=== PATIENT | male | born 1970 | race Caucasian/White ===

== ENCOUNTER → 2023-04-01 09:05 | Outpatient (BNVA) | payer OTHER, SELFPAY | PROVIDERS: PCP Nurse Practitioner Family; Visit Provider Registered Nurse Emergency ==

== ENCOUNTER 2023-05-25 07:02 | Outpatient (REF) | payer OTHER, SELFPAY ==
--- NOTE | ~2023-05-25 | FL_ITS ---
EXAMINATION: XR FLUOROSCOPY WITH IMAGES CLINICAL INFORMATION: Spondylosis without myelopathy COMPARISON: None available. TECHNIQUE: Fluoroscopy Supervised By: Dr. Imer Green. Fluoroscopy Time: 0.9 minutes. Cumulative Dose: 3.97 mGy. DAP: 0.0686 Gycm2. Images: 8. FINDINGS: Images demonstrate 5 needle superimposing over the left cervical facets. Contrast present. FL/FL guidance in treatment room IMPRESSION: Imaging assistance provided during a fluoroscopic procedure
== END 2023-05-25 07:03 | disposition home or self-care (01) ==
LOC: CF 07:02
PROVIDERS: PCP Anesthesiology; Visit Provider Nurse Practitioner Family
DX: M47.812 Spondylosis without myelopathy or radiculopathy, cervical region (principal)
CPT/HCPCS: 64490; 64491

== ENCOUNTER 2023-05-25 07:48 | Outpatient (AMB) | payer SELFPAY ==
[2023-05-25 07:53] VITALS: BP 116/76; PULSE 78; RESP 16; O2SAT 96; BMI 28.3
--- NOTE | 2023-05-25 07:53 | A.OFFVIS_ITS ---
Intake Vital Signs 05/25/23 07:53 05/25/23 09:05 Height 5 ft 7 in 5 ft 7 in Weight 181 lb 181 lb BMI 28.3 28.3 BP 116/76 104/62 Blood Pressure Location Lt brachial Lt brachial Position Sitting Sitting Respiration 16 16 Pulse 78 61 Pulse Source Pulse Oximeter Pulse Oximeter Pulse Oximetry (%) 96 99 Oxygen Delivery Method Room Air Room Air Comment Pre-Op Post-op Intake Visit Reasons: LEFT DIAGNOSTIC C5, C6, C7, C8 MBB Allergies No Known Allergies Allergy (Verified 05/25/23 07:54) [facility] Medical History (Updated 04/01/23 @ 11:21 by Fely Stoner, MANAGER CATEGORY, CHIEF OPERATING ENGINEER) Generalized anxiety disorder Generalized headaches History of substance abuse Hyperlipemia Mild obstructive sleep apnea Neck pain Nicotine dependence Social History (Updated 04/01/23 @ 09:32 by Sue Mendez) Alcohol intake: current Alcohol intake frequency: a few times a week Alcohol type: beer Patient Tobacco Use Status: Former Tobacco user Substance Use Type: Crack/Cocaine, Heroin and Marijuana Physical Exam Vital Signs: Last Vital Signs Pulse 61 05/25/23 09:05 Resp 16 05/25/23 09:05 BP 104/62 05/25/23 09:05 Pulse Ox 99 05/25/23 09:05 Oxygen Delivery Method Room Air 05/25/23 09:05 BMI result Body Mass Index 28.3 Results Reviewed Results Reviewed: 05/25/23 08:06 Lidocaine HCl 2 % MPF [Xylocaine 2 % MPF] 5 ml .ROUTE .STK-MED ONE Assessment & Plan Assessment & Plan (1) Arthropathy of cervical facet joint: Code(s): M47.812 - Spondylosis without myelopathy or radiculopathy, cervical region Plan: Left C3- C4- C5- C6 diagnostic medial branch block. ?Informed consent was explained to the patient. All questions were explained and answered.? The patient was taken inside the operating room where he was positioned prone on the operating table. Time-out was performed delineating correct site, side, the nature of the procedure, patient's allergy, preoperative antibiotic if needed.? All operating room staff was participating in OR time-out procedure. The back of the neck and upper thorax were prepped with ChloraPrep and draped with sterile towels.? ? Sterilely draped C-arm was brought over the operating field and sq picture of? C3-C4-C5- C6 vertebrae were delineated on the screen.? Points of interest were delineated as lateral masses on the left of the vertebrae as above. The waste of each lateral mass was chosen as the target of the tip of the needles on AP view, lateral veiw was used as a safety view for the tips of the needles position.?? The projections of the point of interest to the skin were injected with the small amount of local anesthetic lidocaine 2% 1- 1.5 cc.? After that 22 gauge 3and 1/2 inch? spinal needles were driven to the point of interest in tunnel vision fashion. After needles gently contacted the bone at the point of interests the needle was injected with small amount of the contrast .No intravascular spread was detected the injection did not demonstrate intravascular or intrathecal spread.. ropivacaine 0.5%-1cc. ? Upon completion of the injections the needles were removed and sterile dressing was applied, the patient was taken? outside of the operating room to recovery room where he recovered uneventfully. (2) Chronic headaches: Code(s): R51.9 - Headache, unspecified; G89.29 - Other chronic pain (3) Trapezius muscle strain: Code(s): S46.819A - Strain of other muscles, fascia and tendons at shoulder and upper arm level, unspecified arm, initial encounter Plan Jah is a pleasant 52-year-old male presented to the office today for ongoing left-sided neck pain and debilitating headaches for the last 1 year after a work injury. Patient has exhausted conservative treatment including NSAIDs, physical therapy x2 and home exercise program. Reviewed physical exam findings with patient and given lack of radicular pain, numbness, tingling, weakness or any red flag signs MRI now warranted at this time. On exam patient with positive facet loading test, consistent with cervical facet joint arthropathy. He also has significant tenderness over middle trapezius muscle consistent with trapezius muscle strain. Discussed options for treatment including peripheral nerve stimulation with Sprint, RFA and more permanent neuromodulation. Informational pamphlets provided. Patient received some relief with tens unit for trapezius muscle strain while at physical therapy, will order tens unit for patient to use at home. Information for [employer] provided to patient. Will schedule patient for left diagnostic C5, C6, C7, C8 medial branch blocks. Patient given information on sprint and is interested in placement after confirmation of pain generator with diagnostic MBBs. All questions and concerns have been answered and patient agrees with the plan. Follow up after injections, sooner if needed. This note is constructed using voice recognition software. While every effort has been made to ensure accuracy, brass cleaner errors may have been included. Orders: Orders FL guidance in treatment room Today M47.812 - Spondylosis without myelopathy or radiculopathy, cervical region Coding Level of Care Code Procedure Only Diagnoses Arthropathy of cervical facet joint M47.812 Chronic headaches R51.9; G89.29 Trapezius muscle strain S46.815M
[2023-05-25 09:05] VITALS: BP 104/62; PULSE 61; RESP 16; O2SAT 99; BMI 28.3
== END 2023-05-25 08:53 | disposition home or self-care (01) ==
LOC: HO.PMCPRC 07:48
PROVIDERS: PCP Anesthesiology; Visit Provider Anesthesiology
DX: M47.812 Spondylosis without myelopathy or radiculopathy, cervical region (principal)
CPT/HCPCS: 64490; 64491

== ENCOUNTER 2023-06-03 09:02 | Outpatient (AMB) | payer OTHER, SELFPAY ==
--- NOTE | 2023-06-03 09:12 | MHC.OFFVIS ---
Intake Vital Signs 06/03/23 09:13 Height 5 ft 7 in Weight 177 lb BMI 27.7 BP 108/76 Position Sitting Respiration 16 Pulse 68 Pulse Source Pulse Oximeter Pulse Oximetry (%) 97 Oxygen Delivery Method Room Air Intake Visit Reasons: LEFT DX C4, C5,C6 MBB/05/25/23 Allergies No Known Allergies Allergy (Verified 06/03/23 09:14) HPI HPI Comments History of Present Illness Details Jah presents back to the office today for follow up s/p C4-C5-C6-C7 MBB on 05/25/2023. Patient reports 50-60% cervical neck pain relief during the 2 days post procedure. He reports 100% relief from chronic headaches. I haven't had a headache since . He reports improvement in function, mobility and mood during the 2 days post procedure. He denies any untoward effects. Sprint PNS discussed again with patient today, he would like to proceed with this plan. Prior: Jah is a pleasant 52-year-old male patient new to this office for evaluation management of his neck pain and headaches. The patient reports that he suffered an injury at work June 2022 and has suffered from left-sided neck pain and debilitating headaches since. Patient reports that he has completed 2 rounds of physical therapy, the last 1 was about 2 months ago. Physical therapy helped when he was there but states that the pain and headaches returned after the visit. He does report that while at physical therapy he did receive some relief with the tens unit, and would be willing to trial a home tens. Patient currently taking ibuprofen, methocarbamol and duloxetine for the pain with minimal relief. Patient states that he was in the process of undergoing treatment at [facility] but had difficulties with workman's comp insurance approving recommended course of treatment. Patient states they had tried to obtain an MRI which was denied and also planned for injections which were also tied. Patient recently saw his primary care doctor who referred him here for evaluation and management. Patient reports left-sided neck pain that does not radiate, he denies upper extremity numbness tingling or weakness. Patient states his pain is constant, worse when he wakes up in the morning and rates it about a 7/10, states in the afternoon is a little better but then worsened again at night. Activity, movement, weather changes exacerbate the pain; he has not been found anything to alleviate the pain. The patient reports the pain is impacting his ability to sleep, perform activities of daily living the and function normally. Patient remains out of work due to this injury and ongoing pain. In terms of muscle damage the condition is described as pulsating, throbbing, pounding, dull, sore, hurting, aching and heavy. Past medical history significant for obstructive sleep apnea, anxiety, headaches, nicotine use and remote history of substance use disorder. Patient denies any implants, pacemaker for defibrillator. Patient endorses being a cigarette smoker, drinks a couple of beers occasionally, drinks a cup of coffee a day, denies recreational drug use. [facility] Medical History (Updated 04/01/23 @ 11:21 by Fely Stoner APRN, PILOT SAFETY INSPECTOR) Generalized anxiety disorder Generalized headaches History of substance abuse Hyperlipemia Mild obstructive sleep apnea Neck pain Nicotine dependence Social History (Updated 04/01/23 @ 09:32 by Sue Mendez) Alcohol intake: current Alcohol intake frequency: a few times a week Alcohol type: beer Patient Tobacco Use Status: Former Tobacco user Substance Use Type: Crack/Cocaine, Heroin and Marijuana Review of Systems Const All systems reviewed & are unremarkable except as noted in HPI and below Physical Exam Vital Signs: Last Vital Signs Pulse 68 06/03/23 09:13 Resp 16 06/03/23 09:13 BP 108/76 06/03/23 09:13 Pulse Ox 97 06/03/23 09:13 Oxygen Delivery Method Room Air 06/03/23 09:13 BMI result Body Mass Index 27.7 General: awake, alert, oriented. Answers questions appropriately. Fully engaged in examination. Skin: warm, dry, intact without visible rashes or lesions. HEENT: Normocephalic. Conjuntivae clear without exudate. Sclera non-icteric. Hearing intact. Cardiac: External chest normal in appearance. Respiratory: No signs of trauma. No signs of respiratory distress. No cough, audible wheezing or stridor. Abdomen: without gross distension. MS: No obvious swelling or deformities. Able to transition from sit to stand unassisted. Ambulates with bilaterally normal heel strike and toe off Cervical Spine: Visible inspection without gross abnormality Tenderness left upper and middle trapezius muscles Nontender to palpation over paraspinal muscles and midline cervical vertebrae Spurling compression test positive. Elvey's tension test negative bilaterally. Lhermitte's test negative. BUE strength 5/5 DTR symmetrical and intact bilaterally. 2+ radial pulses bilaterally. Neurological: Oriented to person, place, time and situation. Thought process intact. No gait abnormalities appreciated. Psychiatric: Appropriate mood and affect. Good judgment and insight. Psych Appearance: grossly normal Affect: normal affect Attitude: cooperative Thought process: Normal thought process present Thought content: Normal thought content present Insight: Good insight present (Psych) Judgement: Good judgement present (Psych) Assessment & Plan Assessment & Plan (1) Arthropathy of cervical facet joint: Code(s): M47.812 - Spondylosis without myelopathy or radiculopathy, cervical region (2) Chronic headaches: Code(s): R51.9 - Headache, unspecified; G89.29 - Other chronic pain (3) Trapezius muscle strain: Code(s): S46.819A - Strain of other muscles, fascia and tendons at shoulder and upper arm level, unspecified arm, initial encounter Plan Jah is a pleasant 52-year-old male presented back to the office today for follow up s/p C4-C5-C6-C7 MBBs on 05/25/2023 that resulted in 60% pain relief of his neck pain and 100% improvement of his chronic headaches. He reported improved function and mood in the 2 days following the diagnostic procedure. Discussed options for treatment including peripheral nerve stimulation with Sprint, RFA and more permanent neuromodulation. Patient would like to proceed with Sprint PNS, Informational pamphlets provided. Will schedule patient for Fluoroscopy guided left C5MB Sprint with local anesthetic. All questions and concerns have been answered and patient agrees with the plan. Follow up after procedure, sooner if needed. Coding Level of Care Code Est Pt Level 3 (56484) Diagnoses Arthropathy of cervical facet joint M47.812 Chronic headaches R51.9; G89.29 Trapezius muscle strain S46.819A
[2023-06-03 09:13] VITALS: BP 108/76; PULSE 68; RESP 16; O2SAT 97; BMI 27.7
== END 2023-06-03 09:30 | disposition home or self-care (01) ==
PROVIDERS: PCP Anesthesiology; Visit Provider Registered Nurse Emergency
DX: M47.812 Spondylosis without myelopathy or radiculopathy, cervical region (principal); R51.9 Headache, unspecified; G89.29 Other chronic pain; S46.819A Strain of other muscles, fascia and tendons at shoulder and upper arm level, unspecified arm, initial encounter
CPT/HCPCS: 99213

== ENCOUNTER → 2023-06-03 09:02 | Outpatient (BNVA) | payer OTHER, SELFPAY | PROVIDERS: PCP Anesthesiology; Visit Provider Registered Nurse Emergency ==